=== PATIENT | female | born 1955 | race African-American/Black ===

== ENCOUNTER 2018-02-17 11:54 | Emergency (ER) | payer MEDICARE ==
[2006-02-14 16:14] VITALS: BP 108/55
[~2018-02-17] VITALS: Ht 170.2 cm; Wt 147.7 kg
[~2018-02-17 11:54] MED LIST: ACTOS 15MG TAB15 MG PO; ACTOS30 MG PO; ALLOPURINOL100 MG PO; ALLOPURINOL300 MG PO; ANTIVERT 25MG25 MG PO; ANUSOL HC25 MG/SUPP RC; CEFTIN500 MG PO; DIOVAN; FERROUS SULFAT325 MG PO; FLEXERIL 1010 MG/TAB PO; FUROSEMIDE; GLIPIZIDE2.5 MG PO; INSULIN NOVO100 U/ML IJ; LANTUS SOLOS100 U/ML SC; LANTUS100 U/ML; LASIX 20MG TABL20 MG PO; LASIX 40MG TABL40 MG PO; LEVEMIR100 U/ML SC; LEVEMIR100 U/ML SQ; LISINOPRIL; LISINOPRIL/HCTZ1 TA1 PO; LOPRESSOR 225 MG/TAB PO; METOPROLOL TART25 MG PO; MVI; NISOLDIPINE; NISOLDIPINE20 MG PO; NORCO 325 MG-51 TAB PO; NORCO 325 MG-7.1 TAB PO; NORVASC 10MG10 MG PO; NOVOLIN 70/30 710 ML SC; NOVOLIN 70/30 710 ML SQ; NOVOLOG FLEX100 U/ML SC; PHENERGAN 25 TA25 MG PO; PHENTERMINE15 MG PO; PRAVACHOL 20MG20 MG PO; PRINZIDE 12.5 M1 TA1 PO; SIMVASTATIN20 MG PO; STOOL SOFTENER100 M2 PO; SULAR; TOPROL; VICODIN 5/5001 UDTAB PO; VITAMIN D50000 I2 PO; ZYLOPRIM 100MG100 MG PO; [UNRECOGNIZED DRUG - REMARK]; glybride
[2018-02-17 11:58] VITALS: TEMP 97.8
[2018-02-17] MEDS ORDERED: PERCOCET 325 MG1 TA2 PO (14:21)
[2018-02-17 14:34] VITALS: BP 154/79; PULSE 84
== END 2018-02-17 14:35 | disposition home or self-care (01) ==
LOC: COL.ER 11:54
DX: S52.502A Unspecified fracture of the lower end of left radius, initial encounter for closed fracture (principal); I10 Essential (primary) hypertension; M10.9 Gout, unspecified; E11.9 Type 2 diabetes mellitus without complications; Z79.4 Long term (current) use of insulin; Z87.891 Personal history of nicotine dependence; W01.0XXA Fall on same level from slipping, tripping and stumbling without subsequent striking against object, initial encounter; Y92.002 Bathroom of unspecified non-institutional (private) residence as the place of occurrence of the external cause
CPT/HCPCS: J2250; J2704; J3010

== ENCOUNTER 2021-05-02 13:09 | Outpatient (CLI) | payer MEDICARE ==
[2006-02-14 16:14] VITALS: BP 108/55
[~2021-05-02] VITALS: Ht 172.7 cm; Wt 150.0 kg
[2021-05-02] VITALS (7 sets, daily range): BP systolic 127–148; BP diastolic 67–80; PULSE 59–70; TEMP 97.9
[~2021-05-02 13:09] MED LIST changes: +COZAAR100 MG PO; +CYMBALTA 60MG60 MG PO; +HCTZ12.5TAB PO; +HUMULIN R 10100 U/ML SQ; +KAPSPARGO SPRIN25 MG PO; +LIPITOR20 MG PO; +NEURONTIN100 MG/CAP PO; +NOVOLIN N100 UNIT/1 SQ; +PERCOCET 325 MG1 TA2 PO
--- NOTE | 2021-05-02 17:05 | NUR ---
DC instructions reviewed with pt, she expresses understanding. Bandaid remains clean, dry and intact over puncture site. Pt assisted from bed to wheelchair with x1 assist and is taken to meet her at his vehicle with personal belongings.
== END 2021-05-02 17:05 | disposition home or self-care (01) ==
LOC: COL.RAD 13:09
DX: R53.1 Weakness (principal); R29.2 Abnormal reflex

== ENCOUNTER → 2021-06-20 | Outpatient (CLI) | payer MEDICARE | LOC: COL.RAD 13:06 | DX: M47.816 Spondylosis without myelopathy or radiculopathy, lumbar region (principal); I63.9 Cerebral infarction, unspecified; M47.817 Spondylosis without myelopathy or radiculopathy, lumbosacral region; M51.26 Other intervertebral disc displacement, lumbar region; M51.27 Other intervertebral disc displacement, lumbosacral region; M48.061 Spinal stenosis, lumbar region without neurogenic claudication; M48.07 Spinal stenosis, lumbosacral region; M43.16 Spondylolisthesis, lumbar region; M24.28 Disorder of ligament, vertebrae; M89.38 Hypertrophy of bone, other site ==

== ENCOUNTER → 2021-11-10 | Outpatient (CLI) | payer MEDICARE | LOC: COL.RAD 07:09 | DX: M47.23 Other spondylosis with radiculopathy, cervicothoracic region (principal); M48.03 Spinal stenosis, cervicothoracic region; M51.14 Intervertebral disc disorders with radiculopathy, thoracic region ==

== ENCOUNTER 2023-03-27 11:25 | Emergency (ER) | payer MEDICARE ==
[~2023-03-27] VITALS: Ht 170.2 cm; Wt 143.2 kg
[~2023-03-27 11:25] MED LIST changes: +ASPI325T6 PO; +ASPIRIN 81M81 MG/TA2 PO; +CALCIUM 600600 MG PO; +DUO-KAPS1 CAP PO; +VITAMIN C500 MG PO
[2023-03-27] MEDS ORDERED: Ondansetron 4 MG/2 ML VIAL IV ONE (11:45)
[2023-03-27] MEDS ORDERED: NS 1,000 ML IV ONE (11:45)
[2023-03-27] MEDS ORDERED: Acetaminophen 500 MG TAB PO ONE (11:45)
[2023-03-27 12:48] LABS: BASO % 0.1 % (0.0-2.0); GRAN # 13.7 K/mm3 (1.4-6.5); GRAN % 89.9 % (42.2-75.2); HEMOGLOBIN 10.4 g/dl (12.5-16.0); LYMPH # 0.8 K/mm3 (1.2-3.4); LYMPH % 5.3 % (20.0-51.0); MEAN CELL VOLUME 98 fl (80.0-100.0); MEAN CORPUSCULAR HEMOGLOBIN 31 pg (27-31); MEAN CORPUSCULAR HGB CONC 32 g/dl (33.0-37.0); MEAN PLATELET VOLUME 10.5 fl (7.4-10.4); MONO # 0.5 K/mm3 (0.1-0.6); MONO % 3.4 % (1.7-9.3); PLATELET COUNT 187 K/mm3 (130-400); RED BLOOD COUNT 3.35 M/mm3 (4.10-5.30)
[2023-03-27 12:57] LABS: HEMATOCRIT 32.8 % (37.0-47.0)
[2023-03-27 13:05] LABS: ALBUMIN 3.2 gm/dL (3.4-4.8); BILIRUBIN,TOTAL 0.5 mg/dL (0.2-1.2); CREATININE, serum 2.39 mg/dL (0.57-1.11); POTASSIUM 4.5 mmol/L (3.5-4.5); TOTAL PROTEIN 7.7 gm/dL (6.2-8.1)
[2023-03-27 13:56] LABS: COLLECTION METHOD CATHETER; URINE APPEARANCE Hazy (CLEAR/HAZY); URINE COLOR Yellow (YELLOW)
[2023-03-27 13:57] LABS: PH 5.5 (5.0-8.5); URINE BLOOD TRACE-INTACT (NEGATIVE); URINE GLUCOSE Negative (NEGATIVE); URINE KETONE Negative (NEGATIVE); URINE NITRATE Positive (NEGATIVE); URINE PROTEIN(semi-quant) 1+ (NEGATIVE); URINE UROBILINOGEN 0.2 E.U/dL (0.2-1.0)
[2023-03-27 14:07] LABS: SQUAMOUS EPITHELIAL 0-2 /hpf (0-10); URINE RBC 0-2 /hpf (0-2)
[2023-03-27 14:08] LABS: URINE BACTERIA Many /hpf (NONE SEEN)
[2023-03-27] MEDS ORDERED: cefTRIAXone 1 G in Water For Injection,Sterile 10 ML IV ONE (14:15)
[2023-03-27] MEDS ORDERED: CEFTIN 250250 MG/TAB PO (15:25)
[2023-03-27] MEDS ORDERED: ZOFRAN ODT4 MG PO (15:26)
[2023-03-27 15:50] VITALS: BP 98/66; PULSE 77; TEMP 98.1
== END 2023-03-27 15:56 | disposition home or self-care (01) ==
LOC: COL.ER 11:25
PROVIDERS: Physician Assistant
DX: N39.0 Urinary tract infection, site not specified (principal); R11.2 Nausea with vomiting, unspecified; E11.22 Type 2 diabetes mellitus with diabetic chronic kidney disease; I12.9 Hypertensive chronic kidney disease with stage 1 through stage 4 chronic kidney disease, or unspecified chronic kidney disease; N18.9 Chronic kidney disease, unspecified; Z87.891 Personal history of nicotine dependence; Z79.4 Long term (current) use of insulin
CPT/HCPCS: J0696; J2405; J7030

== ENCOUNTER → 2023-05-08 | Outpatient (CLI) | payer MEDICARE, MEDICAID ==
[~2023-05-08] MED LIST changes: +CEFTIN 250250 MG/TAB PO; +ZOFRAN ODT4 MG PO
== END ==
LOC: COL.RAD 08:44
DX: M47.812 Spondylosis without myelopathy or radiculopathy, cervical region (principal); M48.02 Spinal stenosis, cervical region; M48.061 Spinal stenosis, lumbar region without neurogenic claudication; G62.9 Polyneuropathy, unspecified; R70.0 Elevated erythrocyte sedimentation rate; R76.8 Other specified abnormal immunological findings in serum